=== PATIENT | female | born 1995 | race Caucasian/White ===

== ENCOUNTER 2025-03-08 11:06 | Outpatient (CLI) | payer OTHER, SELFPAY ==
[2025-03-14 11:27] LABS: Pap Test Digital Imaging Done
[2025-03-16 16:13] LABS: HPV Source Cervix
== END 2025-03-08 11:07 | disposition home or self-care (01) ==
PROVIDERS: Visit Provider Family Medicine
DX: Z12.4 Encounter for screening for malignant neoplasm of cervix (principal); Z11.51 Encounter for screening for human papillomavirus (HPV); Z13.6 Encounter for screening for cardiovascular disorders; Z13.1 Encounter for screening for diabetes mellitus
CPT/HCPCS: 80048; 80061; 87624; 87625; 88141; 88142; 88175